=== PATIENT | male | born 1935 | race Caucasian/White ===

== ENCOUNTER 2016-12-28 09:17 | Day surgery (SDC) | payer MEDICARE, BC ==
[2016-12-28] VITALS (8 sets, daily range): BP systolic 99–166; BP diastolic 49–73; PULSE 57–84; RESP 12–21; TEMP 97.7–97.9; O2SAT 94–100; Ht 162.6 cm; Wt 59.9 kg
[~2016-12-28] VITALS: Ht 162.6 cm; Wt 59.9 kg
[~2016-12-28 09:17] MED LIST: LIDOCAINE 1% (10mg/ml) 2ml SDV INJ ONE; LR 1,000 ML IV SCH; NORMAL SALINE 1,000 ML IV ONE; PRED10TA PO
--- OUTSIDE RECORDS SUMMARY | 2016-12-28 09:22 | XMS REPORT | Continuity of Care Document ---
Author Author [facility] Organization [facility] Address Unknown Phone Unavailable Allergies Active Description Code Type Severity Reaction Onset Reported/Identified Relationship to Patient Clinical Status Yes No Known Medication Allergies NKMA N/A N/A 06/10/2014 Medications Problems Procedures Results Encounters ACCT No. Visit Date/Time Discharge Status Pt. Type Provider Facility Loc./Unit Complaint [id number] 12/08/2013 13:14:00 12/08/2013 23 :59:59 [facility] Outpatient [id number] 08/26/2013 13:41:00 08/26/2013 23 :59:59 [facility] Out[facility]
--- OUTSIDE RECORDS SUMMARY | 2016-12-28 09:23 | XMS REPORT | Continuity of Care Document ---
Author Author [facility] Organization [facility] Address Unknown Phone Unavailable Support Name Relationship Address Phone BRITNEY CHAVEZ MD Caregiver [address] [place] [address] [place] [address] GUS TILLMAN MD Caregiver [address] [place] [phone] RODNEY NUÑEZ MD Caregiver [address] [place] [address] SHI ISLAS MD Caregiver [address] [place] [address] [place] [address] SCOTTIE ROSE Next Of Kin [address] [place] [address] Insurance Providers Payer Name Policy Number Subscriber Name Relationship Medicare [id number] Ritchie Rose 16 Self [facility] [id number] Ritchie Rose 18 Self Advance Directives Directive Response Recorded Date/Time Advanced Directives Type None 10/26/14 1:09pm Ordered Resuscitation Status Full Code 10/26/14 1:59pm Chief Complaint and Reason for Visit Chief Complaint BACK PAIN Reason for Visit COPD (chronic obstructive pulmonary disease) Weakness Lumbar strain COPD (chronic obstructive pulmonary disease) History of lung cancer Oxygen dependent Dyslipidemia HTN (hypertension) Personal history of tobacco use Overweight (BMI 25.0-29.9) Anemia Leukocytosis CKD (chronic kidney disease), stage III Problems Medical Problems Problem Onset Date Status COPD (chronic obstructive pulmonary disease) Unknown Active Weakness Unknown Active Lumbar strain Unknown Active COPD (chronic obstructive pulmonary disease) Unknown Active History of lung cancer Unknown Active Oxygen dependent Unknown Active Dyslipidemia Unknown Active HTN (hypertension) Unknown Active Personal history of tobacco use Unknown Resolved Overweight (BMI 25.0-29.9) Unknown Active Anemia Unknown Active Leukocytosis Unknown Active CKD (chronic kidney disease), stage III Unknown Active Medications Medication Dose Route Sig Days/Qty Instructions Order Date Discontinued Date Status Lisinopril/Hydrochlorothiazide 1 Tab PO DAILY 04/28/10 Active Simvastatin 20 Mg PO DAILY 04/28/10 10/26/14 Discontinued Aspirin 81 Mg PO DAILY 04/28/10 Active Multivitamins 1 Tab PO DAILY 04/28/10 Active Saw [place] 1,000 Mg PO DAILY 03/11/10 04/22/10 Discontinued Sulfamethoxazole/Trimethoprim 1 Tab PO TWICE A DAY 04/28/10 Discontinued Guaifenesin 600 Mg PO TWICE A DAY 04/28/10 04/28/10 Discontinued Finasteride 5 Mg PO DAILY 04/28/10 10/26/14 Discontinued Fluticasone/Salmeterol 1 Puff ORAL INH RESP.TX TWICE A DAY 10/26/14 Active Pravastatin Sodium 20 Mg PO BEDTIME Take 1 tablet, by mouth, daily at bedtime. 10/26/14 Active Fluticasone Propionate 2 [place] EA NOSTRIL DAILY 10/26/14 Active Guaifenesin 600 Mg PO EVERY 12 HOURS 10/26/14 Active Lorazepam 0.5 Mg PO Every 8 Hours PRN ANXIETY 10/26/14 Active Social History Social History Problem Response Recorded Date/Time Chewing Tobacco Status No 10/26/2014 4:30am Hx Substance Use No 10/26/2014 4:30am Hx Alcohol Use No 10/26/2014 4:30am Has the pt used tobacco in the last 12 months No 10/26/2014 2:24pm Quit (MM/YYYY) 200210/27/2014 8:51am Tobacco Usage none 10/27/2014 8:51am Query Response Start Date Stop Date Smoking Status Former smoker Hospital Discharge Instructions Instructions: Care Instructions: Nutrition: Breastfeed ad enid Follow Up Appointments: [facility] 2 weeks weight check/ 4-6 days 2000 [address] ADA Discharge Activity: As tolerated Slow positional changes Follow Up Appointments: [facility] in 1 week Sunday AT 9:45 [phone] Dr Lopez in 2 weeks Sunday AT 1:40 IN [place] [facility] [phone] Patient Instructions: Wear BRAXTON hose to lower ext Condition at time of discharge: Good Notify Physician If: Melanotic stools or blood in the stool, abdominal pain, fever > 100 Condition at time of discharge: Good Bilirubin Level: 7.5 Congenital Heart Disease Screening Result: Pass - You develop dark urine, light stools, or yellowing of the skin or eyes. - You have pain and/or swelling in your feet, calves, or legs. - You have difficulty breathing, abnormal cough, or chest pain. Condition at time of discharge: Good Plan of Care Discharge Date 11/05/14 11:00am Disposition 01 DISCHARGED HOME, SELF-CARE Instructions/Education Provided DI for Muscle Weakness Prescriptions See Medications Section Functional Status Query Response Date Recorded Physical Hygiene Self October 26, 2014 4:30am Disabilities Visual October 26, 2014 1:09pm Devices Used Glasses October 26, 2014 1:09pm Dressing Self October 26, 2014 4:30am Ambulation Self October 26, 2014 4:30am Diet Self October 26, 2014 4:30am Mental Status Alert October 26, 2014 11:12am Disabilities Visual October 26, 2014 1:09pm Devices Used Glasses October 26, 2014 1:09pm Physical Hygiene Self October 26, 2014 4:30am Dressing Self October 26, 2014 4:30am Ambulation Self October 26, 2014 4:30am Diet Self October 26, 2014 4:30am Allergies, Adverse Reactions, Alerts Allergen Type Severity Reaction Status Last Updated NKDA Allergy Mild Active 10/26/14 Immunizations Name Given Type Hx Influenza Vaccination Y FALL 2013 Historical Hx Pneumococcal Vaccination Y APPROX 3 YRS AGO Historical Hx Tetanus, Diptheria, Pertussis UNKNOWN Historical Hx Influenza Vaccination Y FALL 2013 Historical Hx Tetanus, Diptheria, Pertussis UNKNOWN Historical Vital Signs Acute Vital Signs Vital Response Date/Time Temperature (Fahrenheit) 97.2 deg F (96.8 - 99.1) Temperature (Calculated Celsius) 36.39669 degrees C (36.0 - 37.3) Pulse Rate (adult) 78 bpm (60 - 100) Respiratory Rate 16 breaths/min (10 - 20) Height 5 ft 7 in Weight 166 lb Body Mass Index 26.0 kg/m^2 Results Test Source Date Result Interp. Ref. Range Comments Activated Partial Thromboplast Time October 26, 2014 5:09am 27.6 SEC N 24-36 Alanine Aminotransferase (ALT/SGPT) October 26, 2014 5:09am 27 U/L N 21 -72 Albumin October 26, 2014 5:09am 4.4 G/DL N 3.5-5.0 Albumin/Globulin Ratio October 26, 2014 5:09am 1.1 RATIO N 1.1-2.2 Alkaline Phosphatase October 26, 2014 5:09am 69 U/L N 38-126 Anion Gap November 02, 2014 5:30am 10 MEQ/L N 5-15 Arterial Blood Base Excess April 28, 2010 10:55am 0.2 MMOL/L N -2.0- 2.0 Arterial Blood HCO3 April 28, 2010 10:55am 23 MEQ/L N 22-26 Arterial Blood Oxygen Content April 28, 2010 10:55am 3 - Arterial Blood Oxygen Saturation April 28, 2010 10:55am 97.0 % N 95.0- 98.0 Arterial Blood Partial Pressure CO2 April 28, 2010 10:55am 32 MMHG L 34 -45 Arterial Blood Total CO2 April 28, 2010 10:55am 24.3 MEQ/L N 23-27 Arterial Blood pH April 28, 2010 10:55am 7.470 H 7.350-7.450 Arterial Blood pO2 at Patient Temp April 28, 2010 10:55am 83 MMHG N 80- 100 Aspartate Amino Transf (AST/SGOT) October 26, 2014 5:09am 36 U/L N 17- 59 B-Type Natriuretic Peptide April 28, 2010 7:25am 49 PG/ML N 15-100 BUN/Creatinine Ratio November 02, 2014 5:30am 14 RATIO N 6-26 Band Neutrophils # April 23, 2010 5:05am 0.2 T/MM3 - Band Neutrophils % April 23, 2010 5:05am 3.0 % N 0-6 Basophils # (Auto) November 02, 2014 5:30am 0.0 T/MM3 N 0-0.2 Basophils (%) (Auto) November 02, 2014 5:30am 0.5 % N 0-2 Blood Gas Tidal Volume April 28, 2010 10:55am Not Performed 0-1200 Blood Gas Vent Rate April 28, 2010 10:55am Not Performed 0-30 Blood Urea Nitrogen November 02, 2014 5:30am 19.0 MG/DL N 9-20 Calcium Level November 02, 2014 5:30am 9.4 MG/DL N 8.4-10.2 Calculated Osmolality November 02, 2014 5:30am 266 MOSM/KG N 261-280 Carbon Dioxide Level November 02, 2014 5:30am 30 MEQ/L N 22-30 Chemistry Specimen Hemolysis November 02, 2014 5:30am < 15 0-25 0-25 : No Hemolysis.26-70: Slight Hemolysis - can falsely elevate K and Urine Protein. 71-285: Moderate Hemolysis - can falsely elevate K, Troponin I, CA 19-9, PTH, CSF GLucose, and Urine Protein, and can falsely decrease Phenytoin. 286-999: Gross Hemolysis - can falsely elevate K, Troponin I, CA 19-9, PTH, CSF Glucose, and Urine Protine, and can falsely decrease Phenytoin. Recommend specimen recollection. Chloride Level November 02, 2014 5:30am 97 MEQ/L L 98-107 Conjugated Bilirubin May 06, 2010 11:25am 0.00 MG/DL N 0.00-0.30 Creatine Kinase MB April 28, 2010 7:25am 4.1 NG/ML H 0-3.4 Creatinine November 02, 2014 5:30am 1.4 MG/DL N 0.8-1.5 Differential Total Cells Counted April 23, 2010 5:05am 100 % - Eosinophils # (Auto) November 02, 2014 5:30am 0.4 T/MM3 N 0-0.5 Eosinophils (%) (Auto) November 02, 2014 5:30am 4.4 % H 0-4 Globulin October 26, 2014 5:09am 3.9 G/DL H 2.4-3.6 Glomerular Filtration Rate Calc November 02, 2014 5:30am 49 - Glucometer March 11, 2010 9:18am 110 mg/dL N 75-110 Glucose Level November 02, 2014 5:30am 99 MG/DL N 75-110 Hematocrit November 02, 2014 5:30am 28.8 % L 41-53 Hemoglobin November 02, 2014 5:30am 9.4 GM/DL L 13.5-17.5 Icterus Index November 02, 2014 5:30am < 2 0-7 Immature Granulocyte # (Auto) November 02, 2014 5:30am 0.08 T/MM3 H 0.00 -0.03 Immature Granulocyte % (Auto) November 02, 2014 5:30am 1.0 % H 0.0-0.5 Influenza Type A Antigen October 26, 2014 5:40am Negative - Negative for Flu A protein antigen. Assay sensitivity is90%. Influenza Type B Antigen October 26, 2014 5:40am Negative - Negative for Flu B protein antigen. Assay sensitivity is90%. Lab Scanned Report May 09, 2010 11:13pm LAB TEST FORM REQUEST [id number] - Lymphocytes # (Auto) November 02, 2014 5:30am 1.4 T/MM3 N 1-4.8 Lymphocytes # (Manual) April 23, 2010 5:05am 1.5 T/MM3 N 1-4.8 Lymphocytes % (Manual) April 23, 2010 5:05am 20.0 % L 23-45 Lymphocytes (%) (Auto) November 02, 2014 5:30am 17.2 % L 23-45 Mean Corpuscular Hemoglobin November 02, 2014 5:30am 30.3 UUG N 26-34 Mean Corpuscular Hemoglobin Concent November 02, 2014 5:30am 32.6 GM/DL N 31-37 Mean Corpuscular Volume November 02, 2014 5:30am 92.9 UM3 N 80-100 Mean Platelet Volume November 02, 2014 5:30am 9.3 UM3 L 9.4-12.4 Monocytes # (Auto) November 02, 2014 5:30am 0.9 T/MM3 H 0-0.8 Monocytes # (Manual) April 23, 2010 5:05am 0.5 T/MM3 N 0-0.8 Monocytes % (Manual) April 23, 2010 5:05am 6.0 % N 0-9.0 Monocytes (%) (Auto) November 02, 2014 5:30am 11.4 % H 0-9.0 TI-Who-O-Type Natriuretic Peptide October 26, 2014 5:09am 113 PG/ML N 0 -175 Rule in cut points: <50 years old=450; 50-75 years old=900; >75 years old=1800; When utilizing ProBNP rule-in cut points, adjustment for impaired renal function is typically not required. Neutrophils # (Auto) November 02, 2014 5:30am 5.4 T/MM3 N 1.8-7.7 Neutrophils # (Manual) April 23, 2010 5:05am 5.3 T/MM3 N 1.8-7.7 Neutrophils % (Manual) April 23, 2010 5:05am 71.0 % H 33-66 Neutrophils (%) (Auto) November 02, 2014 5:30am 65.5 % N 33-66 Oxygen Delivery Method (LAB) April 28, 2010 10:55am Nasal cannula,liters - Platelet Count November 02, 2014 5:30am 349 T/MM3 N 130-400 Potassium Level November 02, 2014 5:30am 4.4 MEQ/L N 3.6-5 Prealbumin October 27, 2014 4:59am 6.2 MG/DL L 17.6-36.0 COMMENT shannen Prothromb Time International Ratio October 26, 2014 5:09am 1.24 H 0.81- 1.09 THERAPUTIC RANGE=2.00-3.00 FOR ANTI-THROMBOSIS THERAPUTIC RANGE=2.50- 3.50 FOR IMPLANTED VALVE RDW Standard Deviation November 02, 2014 5:30am 43.5 FL N 36.9-50.2 Red Blood Count November 02, 2014 5:30am 3.10 M/MM3 L 4.50-5.90 Sodium Level November 02, 2014 5:30am 137 MEQ/L N 134-144 Thyroid Stimulating Hormone (TSH) October 27, 2014 4:59am 2.51 MIU/L N 0.47-4.68 COMMENT shannen Total Bilirubin October 26, 2014 5:09am 1.00 MG/DL N 0.20-1.30 Total Protein October 26, 2014 5:09am 8.3 G/DL H 6.3-8.2 Troponin I October 26, 2014 5:09am 0.014 ng/ml N 0-0.12 Turbidity November 02, 2014 5:30am < 20 0-20 Unconjugated Bilirubin May 06, 2010 11:25am 0.38 MG/DL N 0.00-1.10 Urine Bacteria October 26, 2014 6:55am None seen - Has specimen been collected/obtained? Y Urine Bilirubin October 26, 2014 6:55am Negative - Has specimen been collected/obtained? Y Urine Blood October 26, 2014 6:55am 1+ H - Has specimen been collected /obtained? Y Urine Collection Type October 26, 2014 6:55am Voided-not cc-midstr - Has specimen been collected/obtained? Y Urine Color October 26, 2014 6:55am Yellow - Has specimen been collected/obtained? Y Urine Fine Granular Casts April 28, 2010 9:00am 10-20 /LPF - Has specimen been collected/obtained? Y Urine Glucose (UA) October 26, 2014 6:55am Negative - Has specimen been collected/obtained? Y Urine Ketones October 26, 2014 6:55am Negative - Has specimen been collected/obtained? Y Urine Leukocyte Esterase October 26, 2014 6:55am Negative - Has specimen been collected/obtained? Y Urine Nitrite October 26, 2014 6:55am Negative - Has specimen been collected/obtained? Y Urine Protein October 26, 2014 6:55am Trace H - Has specimen been collected/obtained? Y Urine RBC October 26, 2014 6:55am 0-1 /HPF - Has specimen been collected/obtained? Y Urine Specific [place] October 26, 2014 6:55am 1.025 - Has specimen been collected/obtained? Y Urine Squamous Epithelial Cells October 26, 2014 6:55am 0-5 - Has specimen been collected/obtained? Y Urine Turbidity October 26, 2014 6:55am Clear - Has specimen been collected/obtained? Y Urine Urobilinogen October 26, 2014 6:55am 0.2 EU/DL - Has specimen been collected/obtained? Y Urine WBC October 26, 2014 6:55am 0-1 /HPF - Has specimen been collected/obtained? Y Urine pH October 26, 2014 6:55am 6.0 - Has specimen been collected/ obtained? Y Vitamin B12 Level October 27, 2014 4:59am 824 PG/ML N 239-931 COMMENT shannen White Blood Count November 02, 2014 5:30am 8.3 T/MM3 N 4.5-11.0 Blood Culture Blood April 28, 2010 7:40am NO GROWTH AFTER 5 DAYS Gram Stain Sputum-Expectorated Sputum April 28, 2010 6:40pm Name: RITCHIE ROSE Unit #: [id number] : 1935 Sex: M Loc / Svc: ED DOS: 10/26/14 Signed Report #: [id number] DIAGNOSTIC IMAGING REPORT TYPE OF EXAM: LUMBAR SPINE 2 VIEW Dictated By: DARRYL CHOU MD INDICATION: ITS.REASON: low back pain, spasma LUMBAR SPINE 2 VIEW: Comparison: None Findings: No acute fracture identified. Mild grade 1 anterolisthesis of L4 on L5, probably degenerative. Vertebral body heights are maintained. Minimal disk space narrowing at L4-L5. Degenerative facet disease at L4-L5. Calcified abdominal aorta with evidence of a small infrarenal aneurysm measuring 3.3 cm in maximal diameter. Impression: 1. No acute fracture or subluxation. 2. 3.3 cm infrarenal abdominal aortic aneurysm. This could be further evaluated with ultrasound as clinically indicated. . Procedures No known history of procedures. Encounters Encounter Location Date/Time Discharged Inpatient [facility] 10/26/14 11:45am Recent Diagnosis COPD (chronic obstructive pulmonary disease) Weakness Lumbar strain COPD (chronic obstructive pulmonary disease) History of lung cancer Oxygen dependent Dyslipidemia HTN (hypertension) Personal history of tobacco use Overweight (BMI 25.0-29.9) Anemia Leukocytosis CKD (chronic kidney disease), stage III
--- OUTSIDE RECORDS SUMMARY | 2016-12-28 09:23 | XMS REPORT | Continuity of Care Document ---
Author Author [facility] Organization [facility] Address Unknown Phone Unavailable Support Name Relationship Address Phone GUS TILLMAN MD Caregiver [address] [place] [address] Unavailable LEO RUANO DO Caregiver [address] [place] [address] Unavailable SCOTTIE ROSE Next Of Kin [address] [place] [address] Insurance Providers Guarantor Ritchie Rose Address [address] [place] [address] Email [id number] [facility] Policy Number [id number] Subscriber's Name Ritchie Rose Relationship 18 Self Group Number [id number] Effective Date 04 Payer Medicare Policy Number [id number] Subscriber's Name Ritchie Rose Relationship 18 Self Effective Date 98 Advance Directives Directive Response Recorded Date/Time Advanced Directives Type None 11/24/16 3:25pm Chief Complaint and Reason for Visit Chief Complaint Skin Injury Reason for Visit Cellulitis Preseptal cellulitis of left eye Chronic anemia Problems Active Problems Medical Problem Onset Date Status Anemia Unknown Chronic CKD (chronic kidney disease), stage III Unknown Chronic COPD (chronic obstructive pulmonary disease) Unknown Chronic COPD (chronic obstructive pulmonary disease) Unknown Acute Cellulitis Unknown Acute Chronic anemia Unknown Acute Dyslipidemia Unknown Chronic HTN (hypertension) Unknown Chronic History of lung cancer Unknown Chronic Leukocytosis Unknown Acute Lumbar strain Unknown Acute Overweight (BMI 25.0-29.9) Unknown Chronic Oxygen dependent Unknown Chronic Personal history of tobacco use Unknown Resolved Preseptal cellulitis of left eye Unknown Acute Weakness Unknown Acute Medications Current Home Medications Medication Dose Units Route Directions Days Qty Instructions Start Date Aspirin 325 Mg Tablet 325 Mg Oral As Needed 11/24/16 Doxycycline Monohydrate 100 Mg Tablet 1 Tab Oral Twice Daily With Meals 10 Days 20 Tablet 11/24/16 Pravastatin Sodium 20 Mg Tablet 20 Mg Oral Bedtime 11/24/16 Past Home Medications Medication Directions Ordered Status Finasteride 5 Mg Tablet, 5 Mg Oral Daily 04/28/10 Discontinued Guaifenesin (Mucinex) 600 Mg Tablet.sa, 600 Mg Oral Twice A Day 04/28/10 Discontinued Saw [place]rard 1,000 Mg Capsule, 1000 Mg Oral Daily 03/11/10 Discontinued Simvastatin 20 Mg Tablet, 20 Mg Oral Daily 04/28/10 Discontinued Sulfamethoxazole/Trimethoprim (Sulfamethoxazole Tmp Ds Tab) 1 Tab Tablet, 1 Tab Oral Twice A Day 04/28/10 Discontinued Social History Social History Problem Response Recorded Date/Time Onset Date Status Hx Substance Use No 11/24/2016 3:35pm Not Applicable Not Applicable Hx Alcohol Use No 11/24/2016 3:35pm Not Applicable Not Applicable Has the pt used tobacco in the last 12 months No 10/26/2014 2:24pm Not Applicable Not Applicable Quit (MM/YYYY) 200210/27/2014 8:51am Not Applicable Not Applicable Tobacco Usage none 10/27/2014 8:51am Not Applicable Not Applicable Query Response Start Date Stop Date Smoking Status Former smoker Hospital Discharge Instructions No hospital discharge instructions. Plan of Care Discharge Date 11/24/16 6:50pm Disposition 01 DISCHARGED HOME, SELF-CARE Condition at Discharge Stable Instructions/Education Provided Cellulitis (ED) Prescriptions See Medication Section Referrals GUS TILLMAN MD Address: [address] [place] [address] [phone] Note: FOLLOW UP ON SUNDAY WITH DR TILLMAN. RETURN OVER THE WEEKEND IF CONDITION WORSENS . Additional Instructions/Education FOLLOW UP ON SUNDAY WITH DR BRINK IN [place] IF POSSIBLE. CALL THE OFFICE AT 8;30 AM AND MAKE ARRANGEMENTS TO BE SEEN. HE HAS BEEN NOTIFIED AND IS EXPECTING YOUR CALL AND WILL MAKE TIME TO SEE YOU . IF YOU CAN FOLLOW UP WITH AN [facility]AT[facility] THERAPIST IN [place] EARLY NEXT WEEK, THAT WOULD BE ADEQUATE. PLEASE LET DR BRINK'S OFFICE KNOW; THEY MAY CONTACT YOU IF THEY HAVE NOT HEARD FROM YOU TO MAKE SURE YOU HAVE SOMEONE AVAILABLE TO FOLLOW YOU FROM AN OPHTHALMOLOGY STANDPOINT. THE CONTACT INFORMATION FOR DR BRINK IS [phone] AND ADDRESS IS [address] [place] [address]. RETURN TO THE ER OVER THE WEEKEND IF YOU HAVE ANY WORSENING SYMPTOMS OR OTHER CONCERNS. Functional Status No functional status results. Allergies, Adverse Reactions, Alerts Allergen Type Severity Reaction Status Last Updated NKDA Allergy Mild Active 11/24/16 Immunizations Query Response on File Recorded Date/Time Hx Influenza Vaccination Y fall 201310/26/14 2:31pm Hx Pneumococcal Vaccination Y APPROX 3 YRS AGO 10/26/14 2:31pm Hx Tetanus, Diptheria, Pertussis UNKNOWN 10/26/14 4:30am Hx Influenza Vaccination Y FALL 201310/26/14 2:31pm Hx Tetanus, Diptheria, Pertussis UNKNOWN 10/26/14 4:30am Influenza Vaccine Hx 201511/24/16 3:35pm Vital Signs Acute Vital Signs Vital Response Date/Time Temperature (Fahrenheit) 99.2 deg F (96.8 - 99.1) 11/24/2016 3:25pm Temperature (Calculated Celsius) 37.73850 degrees C (36.0 - 37.3) 11/24/2016 3:25pm Pulse Rate (adult) 75 bpm (60 - 100) 11/24/2016 6:50pm Respiratory Rate 18 breaths/min (10 - 20) 11/24/2016 6:50pm O2 Sat by Pulse Oximetry 100 % (90 - 100) 11/24/2016 6:50pm Oxygen Flow Rate 2.00 L/min 11/24/2016 6:50pm Blood Pressure 139/64 mm Hg 11/24/2016 6:50pm Height (Feet) 5 feet 11/24/2016 3:25pm Height (Inches) 8.00 inches 11/24/2016 3:25pm Weight (Kilograms) 59.300 kg 11/24/2016 3:25pm Body Mass Index (BMI) 19.0 11/24/2016 3:25pm Results Laboratory Results Test Name Result Units Flags Reference Collection Date/Time Result Date/ Time Comments White Blood Count 4.9 T/MM3 4.5-11.0 11/24/2016 3:48pm 11/24/2016 4: 02pm Red Blood Count 3.28 M/MM3 L 4.50-5.90 11/24/2016 3:48pm 11/24/2016 4: 02pm Hemoglobin 8.7 GM/DL L 13.5-17.5 11/24/2016 3:48pm 11/24/2016 4:02pm Hematocrit 28.2 % L 41-53 11/24/2016 3:48pm 11/24/2016 4:02pm Mean Corpuscular Volume 86.0 UM3 80-100 11/24/2016 3:48pm 11/24/2016 4: 02pm Mean Corpuscular Hemoglobin 26.5 UUG 26-34 11/24/2016 3:48pm 2016 4:02pm Mean Corpuscular Hemoglobin Concent 30.9 GM/DL L 31-37 11/24/2016 3:48pm 11/24/2016 4:02pm RDW Standard Deviation 43.0 FL 36.9-50.2 11/24/2016 3:48pm 11/24/2016 4 :02pm Platelet Count 205 T/MM3 130-400 11/24/2016 3:48pm 11/24/2016 4:02pm Mean Platelet Volume 9.6 UM3 9.4-12.4 11/24/2016 3:48pm 11/24/2016 4: 02pm Neutrophils (%) (Auto) 68.1 % H 33-66 11/24/2016 3:48pm 11/24/2016 4: 02pm Lymphocytes (%) (Auto) 19.2 % L 23-45 11/24/2016 3:48pm 11/24/2016 4: 02pm Monocytes (%) (Auto) 11.3 % H 0-9.0 11/24/2016 3:48pm 11/24/2016 4:02pm Eosinophils (%) (Auto) 1.0 % 0-4 11/24/2016 3:48pm 11/24/2016 4:02pm Basophils (%) (Auto) 0.4 % 0-2 11/24/2016 3:48pm 11/24/2016 4:02pm Immature Granulocyte % (Auto) 0.0 % 0.0-0.5 11/24/2016 3:48pm 2016 4:02pm Absolute Neutrophils (auto) 3.3 T/MM3 1.8-7.7 11/24/2016 3:48pm 2016 4:02pm Absolute Lymphocytes (auto) 0.9 T/MM3 L 1-4.8 11/24/2016 3:48pm 2016 4:02pm Absolute Monocytes (auto) 0.6 T/MM3 0-0.8 11/24/2016 3:48pm 11/24/2016 4:02pm Absolute Eosinophils (auto) 0.1 T/MM3 0-0.5 11/24/2016 3:48pm 2016 4:02pm Absolute Basophils (auto) 0.0 T/MM3 0-0.2 11/24/2016 3:48pm 11/24/2016 4:02pm Absolute Immature Granulocyte (auto 0.00 T/MM3 0.00-0.03 11/24/2016 3: 48pm 11/24/2016 4:02pm Icterus Index < 2 0-7 11/24/2016 3:48pm 11/24/2016 4:12pm Chemistry Specimen Hemolysis 16 0-25 11/24/2016 3:48pm 11/24/2016 4: 12pm 0-25: Specimen Exhibited No Hemolysis. Turbidity < 20 0-20 11/24/2016 3:48pm 11/24/2016 4:12pm Sodium Level 139 MEQ/L 134-144 11/24/2016 3:48pm 11/24/2016 4:12pm Potassium Level 4.6 MEQ/L 3.6-5 11/24/2016 3:48pm 11/24/2016 4:12pm Chloride Level 102 MEQ/L 98-107 11/24/2016 3:48pm 11/24/2016 4:12pm Carbon Dioxide Level 23 MEQ/L 22-30 11/24/2016 3:48pm 11/24/2016 4: 12pm Anion Gap 14 MEQ/L 5-15 11/24/2016 3:48pm 11/24/2016 4:12pm Blood Urea Nitrogen 15.0 MG/DL 9-20 11/24/2016 3:48pm 11/24/2016 4: 12pm Creatinine 0.9 MG/DL 0.8-1.5 11/24/2016 3:48pm 11/24/2016 4:12pm BUN/Creatinine Ratio 17 RATIO 6-26 11/24/2016 3:48pm 11/24/2016 4:12pm Glomerular Filtration Rate Calc 81 11/24/2016 3:48pm 11/24/2016 4: 12pm Glucose Level 93 MG/DL 75-110 11/24/2016 3:48pm 11/24/2016 4:12pm Calculated Osmolality 269 MOSM/KG 261-280 11/24/2016 3:48pm 11/24/2016 4:12pm Calcium Level 9.5 MG/DL 8.4-10.2 11/24/2016 3:48pm 11/24/2016 4:12pm Total Bilirubin 0.70 MG/DL 0.20-1.30 11/24/2016 3:48pm 11/24/2016 4: 12pm Alkaline Phosphatase 66 U/L 38-126 11/24/2016 3:48pm 11/24/2016 4:12pm Total Protein 7.6 G/DL 6.3-8.2 11/24/2016 3:48pm 11/24/2016 4:12pm Albumin 3.8 G/DL 3.5-5.0 11/24/2016 3:48pm 11/24/2016 4:12pm Globulin 3.8 G/DL H 2.4-3.6 11/24/2016 3:48pm 11/24/2016 4:12pm Albumin/Globulin Ratio 1.0 RATIO L 1.1-2.2 11/24/2016 3:48pm 11/24/2016 4:12pm Aspartate Amino Transf (AST/SGOT) 22 U/L 17-59 11/24/2016 3:48pm 2016 4:12pm Alanine Aminotransferase (ALT/SGPT) 20 U/L L 21-72 11/24/2016 3:48pm 11/2016 4:12pm Plasma Lactate 1.0 MMOL/L 0.6-2.2 11/24/2016 3:48pm 11/24/2016 4:30pm Procalcitonin < 0.05 NG/ML 11/24/2016 3:48pm 11/24/2016 4:30pm PCT < /=0.5 ng/mL - sepsis not likely; PCT >0.5 and </=2 ng/mL - sepsis possible; PCT >2 ng/mL - sepsis likely; PCT >/=10 ng/mL - systemic inflammatory response - sepsis or septic shock highly indicated. Microbiology Results Procedure Source Organism/Result Collection Date/Time Result Date/Time Result Status Blood Culture Peripheral/Iv Start CULTURE INITIATED - RESULTS PENDING 11/24 4:13pm 11/24/2016 4:18pm Preliminary Name: RITCHIE ROSE Unit #: [id number] : [id number] Sex: M Admit Date: Loc / Svc: ED Discharge Date: DIAGNOSTIC IMAGING REPORT Report #: [id number] [facility] THI Vela Indication: ITS.REASON: Left eye swelling and pain, no reported trauma evaluate for ORBITAL CELLULITIS PROCEDURE: CT ORBITS W/CONTRAST: Encounter: Initial Comparison: None Technique: Axial postcontrast CT imaging through the orbits was performed with coronal and sagittal two-dimensional reformats. Automated Exposure Control and Iterative Reconstruction dose reducing techniques were utilized. Contrast: Omnipaque 300 50mL Findings: Bone windows show no evidence of acute fracture. There is minimal mucosal thickening in the maxillary and ethmoid sinuses. The visualized mastoid air cells are grossly clear. Probable prominent perivascular space is incidentally noted in the left frontal lobe. The globes are intact. Evidence of prior bilateral cataract surgeries. There is significant preseptal soft tissue swelling overlying the left globe but no evidence of post septal inflammation. No intraconal or intraocular hematoma. There is soft tissue swelling in the left supraorbital frontal scalp and premalar region as well. No rim-enhancing fluid collection or abscess identified. Extraocular muscles appear symmetric and normal. No intraocular masses. Impression: Evidence of a left frontal and preseptal cellulitis. No CT evidence of an orbital cellulitis. Ophthalmologic evaluation may be helpful. . Procedures No known history of procedures. Encounters Encounter Location Arrival/Admit Date Discharge/Depart Date Attending Provider Departed Emergency Room [facility] 11/24/16 3:20pm 11/24/16 6: 50pm LEO RUANO DO Recent Diagnosis
--- NOTE | 2016-12-28 10:29 | ANESPREOP ---
Anesthesia Record Date and Time DATE: 12/28/16 TIME: 10:28 Pre-Op Diagnosis Esophageal cancer Proposed Surgical Procedure EGD NPO since: Midnight Allergies: Coded Allergies: NKDA (Verified Allergy, Mild, 12/28/16) Ht/Wt/BMI Height: 5 ' 4.00 " Weight: 59.900 kg BMI: 22.7 kg/m2 Vital Signs Date Time Temp Pulse Resp B/P Pulse Ox O2 Delivery O2 Flow Rate FiO2 12/28/16 09:30 97.7 84 20 166/67 94 Nasal Cannula 2.00 Medications Inpatient Medications Current Medications Medications (Trade) Dose Ordered Sig/Beatriz Start Time Stop Time Status Last Admin Dose Admin Lactated Ringer's 1,000 ml @ 30 mls/hr Q24H 12/27/16 07:00 12/27/16 07:00 DC Lactated Ringer's (Lactated Ringers) 1,000 ml @ 30 mls/hr Q24H 12/28/16 07:00 12/28/16 07:00 DC Prednisone (Prednisone) 10 Mg Tablet, 10 MG PO QOD, (Reported) Take 1 tablet, by mouth, once a day with breakfast. Last Taken: on 12/28/16 0700 Currently on Beta Wood: No Medical/Surgical History Anesthesia PMH: Reports: *Dyspnea, *Hypertension (HX- RESOVED WITH WEIGHT LOSS) , Arthritis, COPD, Cancer (HX LUNG CA WITH LEFT UPPER LOBECTOMY), Hiatal Hernia (HX), Reflux, Renal Disease, Denies: *VT, Anesthesia Reactions (NO AIRWAY ISSUES), Asthma, CVA/Stroke/TIA, Clotting Problems, Glaucoma, Hepatitis, Malignant Hyperthermia, Pacemaker, Pneumonia, Seizures, Sleep Apnea, Tuberculosis Smoking Status: Former smoker (quit 12 years ago) Has pt. smoked today?: No Use Chewing Tobacco?: No Second Hand Exposure: No Substance Use Type: does not use Alcohol Intake: rarely Past Surgical History Orthopedic Surgeries: No Abdominal Surgeries: Yes - HERNIA REPAIR Genitourinary Surgeries: Yes - CYSTO/PROSTATE BX Cardiac Surgeries: No Endocrine Surgeries: No Reproductive Surgeries: No Neurological Surgeries: No Ear Surgeries: No Nose Surgeries: No Throat Surgeries: No Other Surgeries: Yes - LUNG SURGERY FOR CA IN 2004, CATARACT Anesthesia Adverse Reactions: FOUND none Family Hx of Anesthesia Advers: none Pertinent Findings EKG Rhythm: Sinus Rhythm Physical Exam Respiratory: Lungs clear Cardiovascular: FOUND Regular rate, rhythm Airway Assessment Mallampati Score: II TMD: 3 Fingerbreadths Neck Extension: Fair Overall Assessment: No Airway Concerns ASA: 3 Plan Anesthesia Plan: TIVA Discussion Discussed risks/options/alternatives of anesthesia and questions answered. Patient consents. Nursing pain assessment noted. Present: Family Member Attestation Statement Prior to the delivery of any anesthetic medication, I examined the patient, developed the plan, obtained the patient's consent and discussed the risk and benefits of the procedure with the patient/guardian. KEANU GUSMAN [employer] Dec 28, 2016 10:29
[2016-12-28] MEDS ORDERED: LIDOCAINE 2% (20mg/ml) 5ml PF SDV ONE (10:30)
[2016-12-28] MEDS ORDERED: PROPOFOL 200mg 20 ML IV ONE (10:30)
[2016-12-28] MEDS ORDERED: LIDOCAINE VISCOUS 2% Oral Soln 15ml UD ONE (10:33)
[2016-12-28] MEDS ORDERED: BENZOCAINE 20% Top. Anesth. SPRAY UD ONE (10:33)
--- NOTE | 2016-12-28 10:58 | ANESPO ---
Post-Op Note Date 12/28/16 Time: 10:57 Status Pt Participated in Evaluation: Pt participated in person Vital Signs Date Time Temp Pulse Resp B/P Pulse Ox O2 Delivery O2 Flow Rate FiO2 12/28/16 09:30 97.7 84 20 166/67 94 Nasal Cannula 2.00 Respiratory Function: Airway patent Cardiovascular Function: Regular pulse Mental Status: Alert/oriented Pain Level Intensity: 0 Hydration: IV infusing Complications during Recovery None apparent Follow-Up Instructions Instructions Per Surgeon CASSIUS MEDINA CRNA Dec 28, 2016 10:58
--- NOTE | 2016-12-28 12:00 | NUR ---
Report Report given to Elicia Kurtz RN at 1200.
--- NOTE | 2016-12-28 13:18 | HPF ---
FINDINGS Mr. Rose is an 81-year-old gentleman whom I was asked to see as a new patient as a result of his history for unintentional weight loss, component of dysphagia, and recently obtained abnormal CT scan. The patient was accompanied today by his daughter and . The patient himself is not the best historian. Apparently the patient has been losing a fair amount of weight over the last several months. He has lost about 30 pounds. He denies specifically dysphagia, but family states that it has been taking him a significantly longer time to eat. They also state that he has been eating considerably less. As a result of his recent history for unintentional weight loss, he did undergo a CT scan that was found to have a suspicious abnormality noted within the mid esophagus. PAST MEDICAL HISTORY History for lung cancer. COPD. BPH. History for renal disease. FAMILY HISTORY Noncontributory. REVIEW OF SYSTEMS Negative except as stated above in Findings section. PHYSICAL EXAMINATION GENERAL: Patient is an 81-year-old male who does appear somewhat cachectic. VITALS: Please refer to electronic medical record. HEENT: Normocephalic. Pupils are equally round and react to light and accommodation. CHEST: Clear to auscultation bilaterally. HEART: Regular rate and rhythm. Normal S1, S2, without gallops, murmurs or clicks. ABDOMEN: Palpation of the abdomen reveals it to be soft and nontender. I do not appreciate any evidence for hepatosplenomegaly nor abnormal masses. EXTREMITIES: Without clubbing, cyanosis, or edema. NEURO: Cranial nerves II-XII grossly intact. Patient without focal, motor, or sensory deficits. LABORATORY/RADIOGRAPHIC EVALUATION I did review the patient's chart electronically including a prior office note dictated from his primary care physician from December 11, 2016. I also reviewed previously obtained CT scan that revealed a suspicious mucosal thickening within the mid esophagus. The patient was also found to have an enlarged left gastric regional lymph node. The patient additionally was found to have a component of subcarinal lymph node enlargement in addition. Findings were consistent with esophageal carcinoma and further recommendation was evaluate. ASSESSMENT 81-year-old gentleman with history for unintentional weight loss, recently obtained abnormal CT scan of chest and abdomen revealing suspicious lesion within mid esophagus. PLAN Preoperatively I did discuss with the patient, his , and the patient's daughter my recommendation of proceeding with esophagogastroduodenoscopy for further evaluation as a result of the above indications. I did discuss with them what an EGD entailed and its associated risks which included, but was not exclusive of, bleeding and/or perforation. Family and patient understood and wish to proceed. MTDD
--- NOTE | 2016-12-28 15:33 | OPNOTEF ---
DATE OF SERVICE 12/28/2016 SURGEON Sunil Clark MD PREOPERATIVE DIAGNOSIS History for unintentional weight loss, abnormal CT scan revealing thickening of mid esophagus. POSTOPERATIVE DIAGNOSIS History for unintentional weight loss, abnormal CT scan revealing thickening of mid esophagus, suspicious neoplastic appearing mid esophageal lesion. PROCEDURE Esophagogastroduodenoscopy with biopsies of suspicious mid esophagus neoplastic appearing lesion via cold biopsy technique. ANESTHESIA TIVA BRIEF HISTORY/INDICATIONS Mr. Rose is an 81-year-old gentleman whom I was asked to see as a result of a recently obtained abnormal CT scan revealing some thickening of his mid esophagus suspicious for underlying neoplastic process. Patient also was found to have some associated adenopathy upon CT scan. The patient did have a 30 pound history for unintentional weight loss. Additionally there was a slight history for a component of some dysphagia. As a result of the above indications, it was recommended he undergo upper endoscopy for further evaluation. For completeness please refer to notes included in the patient's chart. FINDINGS Unfortunately the patient was found to have a suspicious appearing lesion involving his mid esophagus. This extended from about 25 cm from the incisors down to 35 cm from the incisors. 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 Multiple circumferential biopsies were obtained from the neoplastic appearing lesion. Otherwise the esophagus, stomach and duodenum were within normal limits. DESCRIPTION OF PROCEDURE After informed consent was obtained, the patient was brought to the endoscopy suite and placed on the table in left lateral decubitus position. The patient subsequently underwent total intravenous anesthesia by the nurse hydrator operator per my request. A formal time-out was then completed. Next, an Olympus gastroscope was inserted into the oral hypopharynx. Vocal cords were visualized and found to be symmetric in nature. Scope was then advanced directly into the esophagus. Cervical esophagus was without mucosal abnormalities. Scope was then continued to be advanced down to about 25 cm from the incisors where a transition was noted from normal appearing squamous mucosa to abnormal appearing mucosa. The mucosa was more cobblestoned and suspicious in nature. There was a component of some narrowing of the esophageal lumen. The remaining lumen was about the same size as the diameter of the gastroscope. Gastroscope was then able to be continued to advance through the suspicious appearing lesion and subsequently stomach, pylorus, duodenal bulb, into the second portion of the duodenum. The scope was slowly withdrawn. First and second portions of the duodenum were within normal limits. No evidence for ulcerations were noted. The scope was then drawn back into the prepyloric region and antrum. Again, no mucosal abnormalities were noted. A J-maneuver was performed. Cardia and fundus were within normal limits. Endoscopically, there was no evidence for hiatal hernia. Scope was then allowed to straighten and slowly withdrawn. The remaining corpus of the stomach was well visualized and again without noted abnormalities. Scope was withdrawn back to the level of the diaphragm. Squamocolumnar junction was located at the level of the diaphragm. This corresponded to about 40 cm from the incisors. Scope was then slowly withdrawn and again the distal esophagus was without mucosal abnormalities. The suspicious appearing lesion began to be noticed at about 32-35 cm from the incisors. The segment of involvement was about 10 cm in total length. Multiple photos were obtained for documentation purposes. Additionally, numerous biopsies were obtained from this suspicious appearing region within the mid esophagus via cold biopsy technique. Gastroscope was then continued to be slowly withdrawn until it was removed from the patient's oral hypopharynx. The patient tolerated the procedure without difficulty and was sent back to the preop area in stable condition. DERRICK
== END 2016-12-28 12:35 | disposition home or self-care (01) ==
LOC: SCU 09:17
PROVIDERS: ATTEND Surgery
DX: C15.4 Malignant neoplasm of middle third of esophagus (principal); R63.4 Abnormal weight loss; R93.5 Abnormal findings on diagnostic imaging of other abdominal regions, including retroperitoneum; R13.10 Dysphagia, unspecified; J44.9 Chronic obstructive pulmonary disease, unspecified; N40.0 Benign prostatic hyperplasia without lower urinary tract symptoms; E78.5 Hyperlipidemia, unspecified; Z79.82 Long term (current) use of aspirin; Z79.899 Other long term (current) drug therapy; Z85.118 Personal history of other malignant neoplasm of bronchus and lung; Z87.891 Personal history of nicotine dependence; Z90.2 Acquired absence of lung [part of]
CPT/HCPCS: 43239; 88305; J2704